=== PATIENT | female | born 1980 | race Caucasian/White ===

== ENCOUNTER 2016-12-28 17:06 | Emergency (ER) | payer OTHER ==
[~2016-12-28] VITALS: Ht 160 cm; Wt 90.3 kg
[2016-12-28 17:14] VITALS: BP 128/77
--- NOTE | 2016-12-28 20:22 | NUR ---
PT TAKEN TO BED 7
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
--- NOTE | 2016-12-28 21:08 | NUR ---
Sam paulson in [facility] - 12/28/16 at [address] Nguyen evaluating patient at bedside.
--- NOTE | 2016-12-28 21:14 | NUR ---
Dr. Nguyen evaluating patient at bedside.
[2016-12-28] MEDS ORDERED: KETOROLAC 60 MG/2 ML VIAL IM ONE (21:20)
--- NOTE | 2016-12-28 21:57 | NUR ---
PT JUST COMPLETED WORKERS COMP PAPERWORK
[2016-12-28 21:58] VITALS: BP 119/71
--- NOTE | 2016-12-28 21:58 | NUR ---
Patient discharged with v/s stable. Written and verbal after care instructions given and explained. Patient alert, oriented and verbalized understanding of instructions. Ambulatory with steady gait. All questions addressed prior to discharge. ID band removed. Patient advised to follow up with PMD. Rx of NORCO 5/325 AND MOTRIN 800MG given. Patient educated on indication of medication including possible reaction and side effects. Opportunity to ask questions provided and answered.
== END 2016-12-28 21:58 | disposition home or self-care (01) ==
LOC: MED 17:06
DX: T20.10XA Burn of first degree of head, face, and neck, unspecified site, initial encounter (principal); M54.2 Cervicalgia; F17.200 Nicotine dependence, unspecified, uncomplicated; X15.8XXA Contact with other hot household appliances, initial encounter; Y93.89 Activity, other specified; Y92.89 Other specified places as the place of occurrence of the external cause
CPT/HCPCS: 81002; 81025; 96372; 99283; J1885